=== PATIENT | male | born 1995 | race Caucasian/White ===

== ENCOUNTER 2023-09-20 21:58 | Emergency (ER) | payer MEDICAID, OTHER ==
[~2023-09-20] VITALS: Ht 167.6 cm; Wt 66.7 kg
[2023-09-20 22:09] VITALS: BP 124/85; PULSE 79; RESP 14; TEMP 97.6; O2SAT 99
[2023-09-20 22:14] VITALS: BP 124/85; PULSE 79; RESP 14; TEMP 97.6; O2SAT 99
[2023-09-20] MEDS ORDERED: DEXA5SUS20 LEFT EYE (23:17)
== END 2023-09-20 23:20 | disposition home or self-care (01) ==
LOC: MED 21:58
DX: H10.9 Unspecified conjunctivitis (principal); Z79.899 Other long term (current) drug therapy
CPT/HCPCS: 99283